=== PATIENT | female | born 1965 | race Caucasian/White ===

== ENCOUNTER 2019-06-18 12:25 | Emergency (ER) | payer SELFPAY ==
--- NOTE | ~2019-06-18 | XR_ITS ---
EXAMINATION: XR hand LT min 3V EXAM DATE: 06/18/2019 13:04 INDICATION: Initial encounter following injury, with pain of the left third finger. TECHNIQUE: Left hand frontal, lateral and oblique projections obtained and reviewed. There is no estefani or study for comparison. FINDINGS: There is dislocated left third middle phalanx at the proximal interphalangeal joint. There is possible acute left middle phalangeal neck closed posttraumatic fracture, recommend repeating exam following reduction. There is soft tissue swelling. IMPRESSION: 1. Left third middle phalangeal dislocation. 2. Possible third middle phalangeal neck fracture. Reviewed, dictated and finalized at location B. CAL UNDERWRITER
--- NOTE | ~2019-06-18 | XR_ITS ---
EXAMINATION: XR finger 3rd LT min 2V INDICATION: Left third finger post reduction TECHNIQUE: Two views of the left third finger are obtained. COMPARISON: 1300 hours FINDINGS: There is partial reduction of the previously described third middle phalanx dislocation. No definite fracture is identified. There is soft tissue swelling of the third finger. IMPRESSION: 1. Partial reduction of the previously described third middle phalanx dislocation. Reviewed, dictated and finalized at location A. NE MARKETING COORDINATOR IMPRESSION: 1. Partial reduction of the previously described third middle phalanx dislocati on.
[2019-06-18 12:43] VITALS: BP 152/109; PULSE 92; RESP 16; TEMP 36.2; O2SAT 97
[2019-06-18 13:00] LABS: Basophils Absolute Auto 0.2 K/mm3 (0.0-0.1); Basophils Percent Auto 2.1 % (0.2-1.2); Eosinophils Absolute Auto 0.1 K/mm3 (0-0.3); Eosinophils Percent Auto 1.5 % (0-4.4); Hematocrit 32.9 % (37.0-47.0); Hemoglobin 11.2 g/dL (12.0-15.0); Immature Granulocyte Absolute 0.09 K/mm3 (0.00-0.031); Immature Granulocyte Percent A 1.1 % (0-0.5); Lymphocytes Absolute Auto 2.54 K/mm3 (0.9-3.2); Lymphocytes Percent Auto 31.7 % (18.3-44.2); Mean Corpuscular Hemoglobin 34.6 pg (26-34); Mean Corpuscular Volume 101.5 fl (80-100); Mean Platelet Volume 9.2 fl (7.4-10.4); Monocytes Absolute Auto 0.6 K/mm3 (0.1-0.6); Monocytes Percent Auto 7.2 % (2.6-8.5); Neutrophils Absolute Auto 4.5 K/mm3 (1.3-6.7); Neutrophils Percent Auto 56.4 % (45.5-73.1); Platelet Count Result 435 k/mm3 (150-375); Red Blood Count 3.24 M/mm3 (4.2-5.4); Red Cell Distribution Width 16.7 % (11.5-14.5)
[2019-06-18 13:11] LABS: Blood Urea Nitrogen 7 mg/dL (7-17); CRP < 0.5 mg/dL (<1.0); Calcium 8.5 mg/dL (8.4-10.2); Carbon Dioxide 28 mmol/L (22-30); Chloride 96 mmol/L (98-107); Estimated CRCL calculation 79 ml/min; Estimated Glomerular Filt Rate > 60; Glucose 100 mg/dL (65-105); Potassium 2.9 mmol/L (3.4-5.0); Sodium 142 mmol/L (137-145)
[2019-06-18] MEDS: Please add drug allergy info to patient profile. 1 EACH XX (13:14)
[2019-06-18] MEDS: SODIUM CHLORIDE 0.9% IV 1,000 ML 999 ML IV CONT (13:15)
[2019-06-18 13:39] LABS: Magnesium 1.8 mg/dL (1.6-2.3)
[2019-06-18] MEDS: ceFAZolin 2 GM/D5W 50 ML 2 GM/50 ML BAG IVPB (13:54)
[2019-06-18] MEDS: POTASSIUM CHLORIDE 20 MEQ TABLET 40 MEQ PO (14:37)
[2019-06-18 15:00] LABS: Potassium 2.8 mmol/L (3.4-5.0)
[2019-06-18] MEDS: MAGNESIUM SULF 2 GM/WATER 50ML 2 GM/50 ML BAG IVPB (15:19)
[2019-06-18 15:20] VITALS: BP 174/81; PULSE 86; RESP 26; O2SAT 96
--- NOTE | 2019-06-18 15:48 | PC.NURSE ---
SHITAL Tinoco at bedside attempting to reduce finger
--- NOTE | 2019-06-18 16:42 | ED.GENADULT ---
HPI - General Adult General Chief complaint: Extremity Injury, Upper Stated complaint: left hand injury Time Seen by Provider: 06/18/19 12:28 Source: patient and family Mode of arrival: ambulatory Limitations: no limitations History of Present Illness HPI narrative: Patient is a 54-year-old female who presents to emergency department for evaluation of pain to the left leg middle phalanx that began 2 weeks ago after having the finger pulled on while working with her horse had dislocation deformity waited a week and went to outside hospital but left prior to being seen. Patient presents today noting continued difficulty with moving the finger with moderate aching pain patient denies other injuries or complaints and on arrival is in no distress and has not been seen for this complaint Related Data Allergies Allergy/AdvReac Type Severity Reaction Status Date / Time No Known Allergies Allergy Verified 06/18/19 12:58 Review of Systems Review of Systems: Narrative: CONSTITUTIONAL: Denies fever, chills, or sweats. SKIN: Positive for swelling MUSCULOSKELETAL: Positive for decreased range of motion and strength NEUROLOGIC: Denies numbness PMFSH Social History Social History Smoking status: Current every day smoker Gender identity (if verbalized by the patient): Female Exam Narrative: Exam Narrative: GENERAL: Well-appearing, well-nourished, and in no acute distress. HEAD: Normocephalic, atraumatic. EYES: PERRLA and EOMI. ENT: Nares clear, no rhinorrhea or epistaxis. Mucous membranes moist. CHEST: Clear to auscultation. No respiratory distress. No wheezes rales or rhonchi HEART: Regular rate and rhythm. No murmur heard. Normal peripheral pulses. EXTREMITIES: Patient with tenderness of the PIP joint of the left middle digit with finger held and flexion with inability to extend SKIN: Warm, dry, no rash. Patient with nail avulsed of the distal phalanx with some pink viable tissue underneath without any cellulitic changes NEURO: No focal deficits. Alert and oriented x3. Neurovascularly intact. Capillary refill less than 2 seconds PSYCH: Normal mood and affect. Course Course Emergency Course: Patient aware of case findings treatment plan and diagnosis agreeing to follow-up as directed or to return if symptoms worsen or concern Consultations Consultation #1: Discussed case with hand surgeon who will follow the patient in clinic Date: 06/18/19 Vital Signs Vital signs: Vital Signs Temperature 97.2 F L 06/18/19 12:43 Pulse Rate 92 06/18/19 12:43 Respiratory Rate 16 06/18/19 12:43 Blood Pressure 152/109 H 06/18/19 12:43 Pulse Oximetry 97 06/18/19 12:43 Temperature 97.2 F L 06/18/19 12:43 Pulse Rate 86 06/18/19 15:20 Respiratory Rate 26 H 06/18/19 15:20 Blood Pressure 174/81 H 06/18/19 15:20 Pulse Oximetry 96 06/18/19 15:20 Procedures Other Procedure Procedure 1: Other Procedure: Patient's finger was reduced partially splinted in a metal finger splint neurovascularly intact pre-and post procedure which was manually done after a digital block Medical Decision Making MDM Narrative Medical decision making narrative: Patients injury or pain is consistent with musculoskeletal etiology. No signs of neurological or vascular compromise on exam. Compartments and tisues are soft without signs of compartment syndrome. Pain is felt appropriate for further evaluation on an outpatient basis. Patient referred to plastic surgery who will see the patient in clinic patient is aware of this and agrees to follow-up in clinic as planned and was provided with reasons to return Vital Signs Vital Signs: Vital Signs Temperature 97.2 F L 06/18/19 12:43 Pulse Rate 92 06/18/19 12:43 Respiratory Rate 16 06/18/19 12:43 Blood Pressure 152/109 H 06/18/19 12:43 Pulse Oximetry 97 06/18/19 12:43 Temperature 97.2 F L 06/18/19 12:43 Pulse Rate 86
--- NOTE | 2019-06-24 07:40 | PC.NURSE ---
LATE ENTRY This note is being entered to document information to the patient's record. The following information was omitted on [06/24/19], by [Юлия Jimenez] NS stopped at 1415 on 06/18/19 Mag stopped at 1550 on 06/18/19.
== END 2019-06-18 17:11 | disposition home or self-care (01) ==
PROVIDERS: Emergency Medicine Emergency Medical Services; Emergency Provider Emergency Medicine
DX: S63.283A Dislocation of proximal interphalangeal joint of left middle finger, initial encounter (principal); S56.414A Strain of extensor muscle, fascia and tendon of left middle finger at forearm level, initial encounter; F17.200 Nicotine dependence, unspecified, uncomplicated; R93.6 Abnormal findings on diagnostic imaging of limbs; X50.9XXA Other and unspecified overexertion or strenuous movements or postures, initial encounter
CPT/HCPCS: 26770; 36415; 73130; 73140; 80048; 83735; 84132; 85025; 86140; 87070; 87147; 87186; 87205; 96365; 96367; 96375; 99285; A9270; J0131; J0690; J3475; J7030

== ENCOUNTER 2019-06-21 10:52 | Outpatient (CLI) | payer MEDICAID, SELFPAY ==
--- NOTE | ~2019-06-21 | XR_ITS ---
EXAMINATION: XR finger 3rd LT min 2V INDICATION: Left third finger dislocation TECHNIQUE: Four views of the left third finger are obtained. COMPARISON: 06/18/2018 FINDINGS: There is persistent palmar subluxation of the third middle phalanx with respect to the prox imal phalanx. No fracture is identified. Soft tissue swelling surrounds the dislocation. No additiona l acute osseous findings are evident. IMPRESSION: 1. Persistent palmar subluxation of the third middle phalanx with respect to the proximal phalanx. Reviewed, dictated and finalized at location A. [place] COVERAGE MERCHANDISER LEAD IMPRESSION: 1. Persistent palmar subluxation of the third middle phalanx with respect to th e proximal phalanx.
== END 2019-06-21 10:53 | disposition home or self-care (01) ==
PROVIDERS: Visit Provider Plastic Surgery
DX: S63.283A Dislocation of proximal interphalangeal joint of left middle finger, initial encounter (principal)
CPT/HCPCS: 73140

== ENCOUNTER 2019-06-27 01:25 | Day surgery (SDC) | payer MEDICAID, SELFPAY ==
[2019-06-24 08:52] VITALS: BMI 23.1
--- NOTE | 2019-06-26 18:10 | HP_ITS ---
DATE OF SERVICE: 06/27/2019 PREOPERATIVE DIAGNOSIS: Volar dislocation of the left middle finger at the PIP joint. HISTORY: The patient is 54 and she is right-hand dominant lady, who sustained an injury to the left middle finger around May 31. This occurred when she was using a piece of nylon twine as a bridle and rein for a horse, the horse bucked and the reins wrapped around her finger apparently pulled when she sustained a volar dislocation of the PIP joint, the ring finger may have been involved to a lesser degree, but her middle finger ended up with a 90-degree flexion deformity at the PIP joint. These were closed injuries, although she has a soft tissue laceration at the tip of the middle finger. She tried to take care of this herself for a few days. She is visiting in this area for various reasons and lives in [place] now. She presented to the emergency room on 06/18/2019, where x-rays were taken revealing the volar dislocation. An attempt was made by the ER staff to do a reduction and they were not able to do to accomplish that. She was sent to me when I saw her on June 21, and by that time, she was very concerned of this digit, which was causing her a fair amount of discomfort and a lot of anxiety. We were able to make an attempt of reduction of this under local anesthetic in the office. It appears from the x-rays that we were able to correct the basic anatomical issue, but we were not able to maintain full reduction as the collateral ligaments allowed her to fall into subluxation. She is being brought to surgery to do an open reduction and confirm that there is nothing interposed in the joint space and the reduction is complete, and she will probably need to undergo repairs of collateral ligaments, perhaps a central slip and she will need a transverse C-wire for stabilization across the PIP joint I believe from least for a couple of weeks. She is willing to undergo this. She realizes there is not much else that can be accomplished. I have tried to explain to her that this joint will never be the same and she will not have full function from that, but it should not be fpc. ALLERGIES: SHE HAS NO KNOWN ALLERGIES TO MEDICATIONS. PAST SURGICAL HISTORY: She has had no prior surgery. She does not have any client services specialist who follows her. CURRENT MEDICINES: Fluoxetine, Aleve, and hydrocodone 5/325. FAMILY HISTORY: Noncontributory. SOCIAL HISTORY: She lives in [place], [place]. She has a close friend here in this area. She plans to run a horse pretty soon in this area and plans to stay for a bit. PHYSICAL EXAMINATION: GENERAL: She is alert and kind of an anxious person, seemingly in distress each time I have seen her. VITAL SIGNS: She is 5 feet 4 inches and weighs 135 pounds, provides excellent history. HEENT: Unremarkable. CHEST: Clear to auscultation. HEART: Regular rate and rhythm by palpation. ABDOMEN: Soft, nontender. EXTREMITIES: Normal with the exception of the left middle and ring fingers. She has this soft tissue avulsion injury at the very tip of the middle finger, nail is partially involved. She has a very lax PIP joint having sustained a volar dislocation that may or may not be in a reduced condition at this time and she has some swelling and tenderness around the PIP joint of the ring finger. PLAN: Possible open reduction and internal C-wire fixation, possible repair of collateral ligaments or central slip as indicated under general anesthesia. D I MT: Yuly SANABRIA
[2019-06-27] VITALS (9 sets, daily range): BP systolic 106–124; BP diastolic 60–79; PULSE 69–95; RESP 11–20; TEMP 35.8–36.8; O2SAT 94–100
--- NOTE | ~2019-06-27 | XR_ITS ---
EXAMINATION: XR surgery orthopedic DATE: 06/27/2019 10:54 INDICATION: Closed, possible the left third finger fracture. Proximal interphalangeal joint subluxati on TECHNIQUE: 3 fluoroscopic spot images of the third digit were obtained during procedure performed by Dr. Dunham. Radiologist was not present for the imaging or procedure. The amount of fluoroscopy time u sed during this procedure was 0.4 minutes. COMPARISON: None. FINDINGS: Initial lateral spot image demonstrates persistent palmar subluxation at the third proximal interphal angeal joint. Subsequent images demonstrate reduction with percutaneous pin fixation across the joint space which is been reduced to anatomic alignment with mild residual widening of the joint space. No fractures identified. 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 Lik gianni surgical wound on the final images along the dorsal and radial sided soft tissues about the proxi mal interphalangeal joint. IMPRESSION: 1. Successful reduction of the prior palmar subluxation at the third proximal interphalangeal joint w ith percutaneous pin fixation. Reviewed, dictated and finalized at location A. WRESTLER IMPRESSION: 1. Successful reduction of the prior palmar subluxation at the third proximal i nterphalangeal joint with percutaneous pin fixation.
--- NOTE | 2019-06-27 07:18 | WPDHPUPDATE1 ---
History and Physical Update Update Date/Time: 06/27/19 07:18 History and Physical has been reviewed, including an updated exam of the patient. There are NO changes in the patient's condition. Risks, benefits, and alternatives have been discussed and questions answered. Patient agrees to proceed with procedure.
--- NOTE | 2019-06-27 08:58 | WPDANESEPPF ---
Anes - Initial Pre Proc Eval Procedure: Operation Date: 06/27/19 10:00 Proposed Procedures p Closed, Possible Open Reduction and Pin Fixation Left Middle Finger Proximal Interphalangeal Joint Dislocation, Possible Repair Of Collateral Ligaments - Elvis Dunham MD Date/Time: 06/27/19 08:58 Surgeon: Elvis Dunham MD Pre Op Diagnosis: dislocation left middle finger pip Patient Data Age: 54 Gender: F Height: 1.63 m Weight: 65 kg Allergies Allergy/AdvReac Type Severity Reaction Status Date / Time No Known Allergies Allergy Verified 06/27/19 08:50 Home Medications Medication Instructions Recorded Confirmed Type hydrocodone-acetaminophen 1 tablet PO Q6H PRN #20 tablet 06/18/19 06/27/19 Rx albuterol sulfate 1 - 2 puff INHALATION TID PRN 06/24/19 06/27/19 History fluoxetine 30 mg PO DAILY 06/24/19 06/27/19 History naproxen sodium [Aleve] 440 mg PO Q8H PRN 06/24/19 06/27/19 History Patient hx anesthesia problems: none Family hx anesthesia problems: none [facility] Past Medical History Medical History (Updated 06/27/19 @ 08:59 by Isaac Velásquez MD) Anxiety Arthritis Depression Gastroesophageal reflux disease HTN (hypertension) Social History Social History (Updated 06/18/19 @ 16:44 by Eric Peng PA-C) Smoking status: Current every day smoker Gender identity (if verbalized by the patient): Female Anes - Eval Final PreProcedure Day of Procedure 06/27/19 08:58 Patient weight: normal Heart: regular rate and rhythm Lungs: clear to auscultation and normal air movement Airway: Mallampati scale class II Neurological: alert and oriented Last oral intake: >/= 8 hours ASA classification: II Emergent: no Anesthetic plan: proceed Anesthesia type and monitoring: general GIVS and LMA Informed Consent: The patient's anesthetic plan and its attendant risks and benefits were discussed with the patient/family/POA. Questions were solicited and answers provided to the satisfaction of the patient/family/POA.
[2019-06-27] MEDS: LACTATED RINGERS 1,000 ML 30 ML IV CONT ×2 (09:00→11:02)
[2019-06-27] MEDS: MIDAZOLAM HCL 2 MG/2 ML VIAL 1 MG IV PUSH (09:10)
[2019-06-27] MEDS: LIDO 1%/EPINEPHRINE 1:100,000 20 ML VIAL 5 ML INFILTRATE (10:15)
--- NOTE | 2019-06-27 10:57 | PM.OP ---
Procedure Note - Brief Procedure Note - Brief Date of procedure: 06/27/19 Pre-op diagnosis: dislocation left middle finger pip Volar unstable dislocation of left middle PIP joint. Post-op diagnosis: same Procedure performed: Open reduction of volar dislocation of PIPjoint of left middle finger with repair on radial collateral ligament. Anesthesia: GETA Surgeon: Elvis Dunham MD Nurse Substance Abuse: Sera ISAACS student Estimated blood loss (mL): 5 Tourniquet time (min): 0 Drains: No Packing: No Pathology: none sent Complications: No immediate complications Condition: stable Disposition: PACU
--- NOTE | 2019-06-27 11:07 | P.OP_ITS ---
Procedure Note - Detailed Date of procedure: 06/27/19 Pre-op diagnosis: dislocation left middle finger pip Irreducible volar dislocation of left middle finger PIP joint. Procedure performed: Open reduction and internal stabilization of the proximal interphalangeal joint of the left middle finger and repair of the radial collateral ligament Description of procedure: The site was marked on the patient in the holding area. She was taken to the operating room and placed supine operating table. A time-out was held and confirmed. She was given general endotracheal anesthesia as the extremity was prepped and draped in the usual fashion. The site was carefully examined it was marked for a dorsal midline incision is locally infiltrated with 1% lidocaine with epinephrine. C-arm images were made to confirm the open reduced status of this joint. The tourniquet was utilized. The dorsal midline incision was made the extensor tendon was split down the middle it appeared that the dislocation occurred through the interspace between the radial lateral band and the central slip. The central slip did not appear to have been fully avulsed. The ulnar collateral ligament was stable the radial collateral ligament was completely torn. We were able to open the joint and visualize the distal stump of the radial collateral ligament interposed into the joint space. This was relatively easily extracted and the joint fully reduced. C-arm images were done to confirm the reduction. The reduction was manually maintained and the radial collateral ligament was repaired to the fovea on the radial head of the middle phalanx. The distal erick mp of the proper radial collateral ligament was laid in anatomic position.. The central slip and extensor tendon were repaired with 4-0 Prolene sutures. A 0.045 C wire was driven diagonally from the ulnar neck of the proximal phalanx across the joint to the radial metaphysis of the proximal phalanx. The position of that wire and the maintained reduction were captured on C-arm images. The skin was closed with a running 4-0 Prolene. Bandage was applied to the tip of the finger where she has a soft tissue injury and to the operated site. A Coban wrap was applied no additional splinting was provided. She received 2 g of Ancef preop. No additional local anesthetic was utilized. Should be discharged with hydrocodone 5/325 12. She has instructions in wound care and follow-up. Surgeon: Elvis Dunham MD
--- NOTE | 2019-06-27 11:41 | SUR.PHASEI ---
1138; PT AWAKE AND ALERT. TALKATIVE. DENIES PAIN. READY TO SEE FAMILY.
--- NOTE | 2019-07-03 18:57 | PM.OP ---
Procedure Note - Brief Procedure Note - Brief Date of procedure: 07/03/19 Pre-op diagnosis: dislocation left middle finger pip Post Surgeon: Elvis Dunham MD
== END 2019-06-27 13:25 | disposition home or self-care (01) ==
PROVIDERS: Visit Provider Plastic Surgery
PROC: (CPT 26540; principal; 2019-06-27 10:00)
DX: S63.283A Dislocation of proximal interphalangeal joint of left middle finger, initial encounter (principal); S63.633A Sprain of interphalangeal joint of left middle finger, initial encounter; X50.0XXA Overexertion from strenuous movement or load, initial encounter; I10 Essential (primary) hypertension; K21.9 Gastro-esophageal reflux disease without esophagitis; M19.90 Unspecified osteoarthritis, unspecified site; F41.8 Other specified anxiety disorders; F17.210 Nicotine dependence, cigarettes, uncomplicated
CPT/HCPCS: 26540; 26785; A9270; C1713; J0131; J0690; J1100; J2250; J2370; J2405; J2704; J3010; J7120

== ENCOUNTER 2019-07-03 19:23 | Inpatient (IN) | payer MEDICAID, BC, SELFPAY ==
[2019-07-03] VITALS (12 sets, daily range): BP systolic 99–172; BP diastolic 62–105; PULSE 70–92; RESP 7–20; TEMP 36.3–37; O2SAT 92–100; BMI 24.5
--- NOTE | ~2019-07-03 | XR_ITS ---
XR surgery orthopedic 07/05/2019 15:29 Indication: Post procedure wound Procedure: 2 views left third finger Comparison: 06/27/2019 Findings: Portable reduction of the third digit at the PIP joint with percutaneous pin fixation. Inte rval development of a large amount of soft tissue swelling with soft tissue gas, suspicious for cellu litis. No evidence for underlying osteomyelitis. Impression: 1: Interval development of soft tissue swelling with gas adjacent to the left third PIP joint, suspic ious for cellulitis. No evidence for osteomyelitis. Reviewed, dictated and finalized at location A. Impression: 1: Interval development of soft tissue swelling with gas adjacent to the left t hird PIP joint, suspicious for cellulitis. No evidence for osteomyelitis.
--- NOTE | 2019-07-03 16:42 | WPDANESEPP ---
Anes - Eval Pre Procedure Procedure: Operation Date: 07/03/19 17:30 Proposed Procedures p Incision And Drainage Left Middle Finger - Elvis Dunham MD Date/Time: 07/03/19 16:42 Pre Op Diagnosis: Post Procedure Wound Left Middle Finger Patient Data Age: 54 Gender: F Height: Weight: Allergies Allergy/AdvReac Type Severity Reaction Status Date / Time No Known Allergies Allergy Verified 06/27/19 08:50 Home Medications Medication Instructions Recorded Confirmed Type hydrocodone-acetaminophen 1 tablet PO Q6H PRN #20 tablet 06/18/19 06/27/19 Rx albuterol sulfate 1 - 2 puff INHALATION TID PRN 06/24/19 06/27/19 History fluoxetine 30 mg PO DAILY 06/24/19 06/27/19 History naproxen sodium [Aleve] 440 mg PO Q8H PRN 06/24/19 06/27/19 History hydrocodone-acetaminophen 1 tablet PO 4-6XD PRN #12 tablet 06/27/19 Rx Patient hx anesthesia problems: none Family hx anesthesia problems: none PMFSH Past Medical History Medical History Anxiety Arthritis Depression Gastroesophageal reflux disease HTN (hypertension) Social History Social History Smoking status: Current every day smoker Gender identity (if verbalized by the patient): Female Exam Day of Procedure 07/03/19 16:42
[2019-07-03] MEDS: LACTATED RINGERS 1,000 ML 30 ML IV CONT ×2 (16:55→19:26)
[2019-07-03] MEDS: MIDAZOLAM HCL 2 MG/2 ML VIAL IV PUSH (17:05)
--- NOTE | 2019-07-03 17:14 | WPDANESEFPP ---
Anes - Eval Final PreProcedure Day of Procedure 07/03/19 17:14 Patient weight: normal Heart: regular rate and rhythm Lungs: clear to auscultation and normal air movement Airway: Mallampati scale class II Neurological: alert and oriented Last oral intake: >/= 8 hours ASA classification: II Emergent: no Anesthetic plan: proceed Anesthesia type and monitoring: general GIVS and LMA Informed Consent: The patient's anesthetic plan and its attendant risks and benefits were discussed with the patient/family/POA. Questions were solicited and answers provided to the satisfaction of the patient/family/POA.
--- NOTE | 2019-07-03 18:44 | SUR.OPER ---
Dr. Mae wanted to use 0.5% bupivacaine plain instead of lidocaine 1% with epi. Lidocaine was wasted
--- NOTE | 2019-07-03 19:02 | PM.OP ---
Procedure Note - Brief Procedure Note - Brief Date of procedure: 07/03/19 Pre-op diagnosis: Post Procedure Wound Left Middle Finger Post-op diagnosis: same Procedure performed: Sharp debridement of gangrenous ligamentous and subcutaneous tissue of left middle finger. Anesthesia: GETA Surgeon: Elvis Dunham MD Estimated blood loss (mL): 20 Drains: No Packing: Yes Pathology: yes Complications: No immediate complications Condition: stable Disposition: PACU
--- NOTE | 2019-07-03 19:05 | PM.PROC ---
Procedure Note - Detailed Date of procedure: 07/03/19 Pre-op diagnosis: Post Procedure Wound Left Middle Finger Postprocedure wound infection left middle finger Procedure performed: Sharp excisional debridement of gangrenous subcutaneous and ligamentous tissue Description of procedure: The patient had been given Versed in the holding area. I met her there and marked the appropriate upper extremity indicating the middle finger as our target. She was taken to the operating room and placed supine on the operating table. A time-out was held in confirmed. The extremity was prepped and draped in usual fashion as she was administered general endotracheal anesthesia. The tourniquet was inflated to 250 mmHg. The dorsal midline incision was completely opened removing all suture material pus was identified in the area of the extensor tendon and could be compressed from the palmar aspect of the digit through to the dorsum as well. The previously placed c wire was identified. The joint capsule was open and the extensor tendon lay split 2 both sides. The subcutaneous pocket to both sides was explored. A stab wound was made to the palmar proximal phalanx and to the radial side of the digit to allow for drainage. A curette was used to debride granulation tissue. The nonviable tissue was trimmed out with scissors from the extensor tendon the joint capsule and the subcutaneous tissue. This wound was then irrigated with 2 L of bacitracin saline. Quarter-inch iodoform gauze was placed in all crevices. No sutures were placed. The tourniquet was released and the finger was held under light compression until all bleeding stopped. A bulky bandage was applied. Prior to placing the dressing 10 mL of 0.5% Marcaine plain were injected as a dorsal and palmar digital block. A culture was sent for aerobes and anaerobes. Surgeon: Elvis Dunham MD
--- NOTE | 2019-07-03 19:28 | SUR.PHASEI ---
192 dr lindsay here and reiinforced drsg to left fingers.
[2019-07-03 21:09] LABS: Estimated Glomerular Filt Rate > 60
--- NOTE | 2019-07-03 21:43 | ADMGEN ---
This patient, Emma Kimball, was admitted to 3 [facility] Surg Room 309-01. Patient/family oriented to hospital policies and general routines including ID bracelet, bed and alarms, visiting hours, pain management, procedures, bathroom and other care routines, personal items, smoking policy, room service/diet, and visiting hours. Valuables list has been completed. Information on how to activate the Rapid Response Team has been discussed. Patient/Family are encouraged to report perceived risks to care and to ask questions if they do not understand what they are told or what they should do.
[2019-07-03] MEDS: ALPRAZOLAM 0.5 MG TABLET PO (22:01)
[2019-07-03] MEDS: carisoprodoL 350 MG TABLET PO (23:02)
--- NOTE | 2019-07-03 23:30 | HP_ITS ---
DATE OF SERVICE: DIAGNOSIS: Postoperative infection of the left middle finger. SUMMARY: This patient is 54. 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 She ended up with me after several weeks, and we were able to schedule her for open reduction of this, otherwise irreducible volar dislocation of the PIP joint. There was a great deal of damage inside. We corrected what we could, placed a 0.045 inch C-wire diagonally across the PIP joint for stability and she was discharged home. She presented 5 days later with infection in this finger, it was red, swollen, and there are pustules along the suture line. She has had 2 g Ancef preop for a finger that had not appeared to be infected. She very quickly became infected postop. She was admitted today from my office for surgery to debride this. PAST MEDICAL HISTORY: She takes very little medication. She uses albuterol, fluoxetine, some ibuprofen. She has problems with anxiety and depression, currently was not taking medication for those. She also is listed having gastroesophageal reflux, hypertension. No surgical history. She is a current everyday smoker and was reported upon her arrival to the emergency room at [facility] to have been intoxicated with alcohol. PHYSICAL EXAMINATION: GENERAL: She is sometimes very anxious lady, other times not. Appears well nourished. HEENT: Unremarkable. CHEST: Clear to auscultation. HEART: Regular rate and rhythm by palpation. ABDOMEN: Soft, nontender. EXTREMITIES: Shows the very red sausage shaped swollen finger that does not flex or extend at this time at the PIP joint due to the pin. This wound was already opened in my office. All sutures removed and the pus had been drained. ASSESSMENT: Infected surgical wound of the left middle finger. PLAN: I and D, and debride gangrenous subcutaneous or ligamentous or tendinous tissue as indicated in the operating room under general anesthesia. She will be admitted postop. We will send cultures. She will be given IV vancomycin and will be admitted postop with cefazolin and vancomycin. D I MT: Yuly
[2019-07-04 02:00] VITALS: BP 122/83; PULSE 71; RESP 16; TEMP 36.6; O2SAT 95
[2019-07-04] MEDS: HYDROMORPHONE HCL 1 MG/ML INJ IV PUSH ×3 (04:02→19:36)
[2019-07-04 06:00] VITALS: BP 142/83; PULSE 83; RESP 20; TEMP 36.6; O2SAT 100
[2019-07-04] MEDS: ALPRAZOLAM 0.5 MG TABLET PO ×3 (06:05→21:09)
[2019-07-04] MEDS: carisoprodoL 350 MG TABLET PO ×4 (06:05→23:26)
[2019-07-04 06:42] LABS: Hematocrit 28.2 % (37.0-47.0); Hemoglobin 9.2 g/dL (12.0-15.0); Mean Corpuscular HGB Conc 32.6 g/dl (32-36); Mean Corpuscular Hemoglobin 34.3 pg (26-34); Mean Corpuscular Volume 105.2 fl (80-100); Mean Platelet Volume 9.8 fl (7.4-10.4); Platelet Count Result 308 k/mm3 (150-375); Red Blood Count 2.68 M/mm3 (4.2-5.4); Red Cell Distribution Width 15.2 % (11.5-14.5); White Blood Count 10.4 K/mm3 (4.5-10.0)
[2019-07-04 06:59] LABS: Blood Urea Nitrogen 5 mg/dL (7-17); Calcium 8.7 mg/dL (8.4-10.2); Carbon Dioxide 27 mmol/L (22-30); Chloride 101 mmol/L (98-107); Estimated CRCL calculation 113 ml/min; Estimated Glomerular Filt Rate > 60; Glucose 128 mg/dL (65-105); Sodium 135 mmol/L (137-145)
--- NOTE | 2019-07-04 10:38 | WPDANESPN ---
Anes - Prog Note Post-Op Date/Time: 07/04/19 10:38 Cardiovascular status: normal Respiratory status: normal Airway patency: baseline Mental status: baseline Post-Op hydration status: normal Vital Signs: Last Vital Signs Temp 36.6 C 07/04/19 06:00 Pulse 83 07/04/19 06:00 Resp 20 07/04/19 06:00 BP 142/83 H 07/04/19 06:00 Pulse Ox 100 07/04/19 06:00 I/O: Intake & Output 07/03/19 07/04/19 07/04/19 23:59 07:59 15:59 Intake Total 650 170 Output Total 600 Balance 650 -430 Laboratory Tests 07/04/19 05:54 07/04/19 05:54 07/03/19 07/04/19 07/04/19 20:50 05:54 05:54 WBC 10.4 H RBC 2.68 L Hgb 9.2 L Hct 28.2 L MCV 105.2 H MCH 34.3 H MCHC 32.6 RDW 15.2 H Plt Count 308 MPV 9.8 Sodium 135 L Potassium 3.0 L Chloride 101 Carbon Dioxide 27 BUN 5 L Creatinine 0.40 L 0.40 L Estim Creat Clear Calc Not Reportable 113 Estimated GFR > 60 > 60 Glucose 128 H Calcium 8.7 Post-procedural complaints: none Patient Feedback: Patient satisfied with anesthetic care.
[2019-07-04 14:00] VITALS: BP 137/87; PULSE 86; RESP 18; TEMP 36.3; O2SAT 100
--- NOTE | 2019-07-04 19:42 | WPDPN ---
Progress Note: A&P Additional Plan I will need to take her back to the OR tomorrow for a 2nd washout and debredment . Will make NPO but haven't scheduled yet. Exam Narrative: Exam Narrative: Hand and finger redressed. No purulence. Little erythema. Britney in place. Objective Data Vital Signs Vital Signs: Vital Signs - 24 hr 07/03/19 19:45 07/03/19 20:00 07/03/19 20:15 Temperature 36.6 C Pulse Rate 85 75 76 Respiratory Rate 13 10 L 11 L Blood Pressure 166/105 H 162/97 H 172/92 H Pulse Oximetry 96 95 93 07/03/19 20:30 07/03/19 20:45 07/03/19 21:00 Temperature 36.8 C 37.0 C Pulse Rate 74 86 76 Respiratory Rate 16 20 16 Blood Pressure 168/96 H 158/104 H 157/101 H Pulse Oximetry 96 95 96 07/03/19 21:30 07/03/19 22:30 07/04/19 02:00 Temperature 36.8 C 36.8 C 36.6 C Pulse Rate 80 76 71 Respiratory Rate 16 16 16 Blood Pressure 151/102 H 127/80 122/83 Pulse Oximetry 98 92 95 07/04/19 06:00 07/04/19 14:00 Temperature 36.6 C 36.3 C L Pulse Rate 83 86 Respiratory Rate 20 18 Blood Pressure 142/83 H 137/87 Pulse Oximetry 100 100 Intake/Output Intake/Output: Intake & Output 07/01/19 07/02/19 07/03/19 07/04/19 23:59 23:59 23:59 23:59 Intake Total 650 1340 Output Total 1800 Balance 650 -460 Meds/Results Medications: Active Medications Generic Name Dose Route Start Last Admin Trade Name Freq PRN Reason Stop Dose Admin Hydrocodone Bitart/Acetaminophen 1 tab 07/03/19 19:34 07/04/19 19:24 [place] 5-325 Mg PO 1 tab Q4H PRN Administration Pain Rated 4-6 Albuterol 1 - 2 puff 07/03/19 19:45 Proventil Hfa INHALATION TID PRN Shortness Of Breath Alprazolam 0.5 mg 07/03/19 20:04 07/04/19 14:07 Xanax PO 0.5 mg TID PRN Administration Anxiety Carisoprodol 350 mg 07/04/19 00:00 07/04/19 19:28 Soma PO 350 mg Q6HR EDWARD Administration Diphenhydramine HCl 25 mg 07/03/19 19:34 Benadryl Inj IV PUSH Q6H PRN Itching Hydromorphone HCl 1 mg 07/03/19 19:23 07/04/19 14:04 Dilaudid Inj IV PUSH 1 mg Q2H PRN Administration Pain Rated 7-10 Cefazolin Sodium 1 gm in 50 mls @ 100 mls/hr 07/03/19 22:00 07/04/19 15:54 Ancef 1 Gm/D5w 50 Ml Pm IVPB 100 mls/hr Q8HR EDWARD Administration Vancomycin HCl 1,000 mg in 250 mls @ 250 mls/hr 07/04/19 06:00 07/04/19 19:23 Vancomycin 1,000 Mg/D5w 250 Ml IVPB 250 mls/hr Q12H EDWARD Administration Naloxone HCl 0.1 mg 07/03/19 19:34 Narcan IV PUSH Q2M PRN Opiate Reversal Ondansetron HCl 4 mg 07/03/19 19:23 Zofran Inj IV PUSH Q6H PRN Nausea Labs Labs: Laboratory Results - last 24 hr 07/03/19 07/04/19 07/04/19 20:50 05:54 05:54 WBC 10.4 H RBC 2.68 L Hgb 9.2 L Hct 28.2 L MCV 105.2 H MCH 34.3 H MCHC 32.6 RDW 15.2 H Plt Count 308 MPV 9.8 Sodium 135 L Potassium 3.0 L Chloride 101 Carbon Dioxide 27 BUN 5 L Creatinine 0.40 L 0.40 L Estim Creat Clear Calc Not Reportable 113 Estimated GFR > 60 > 60 Glucose 128 H Calcium 8.7
[2019-07-04 22:00] VITALS: BP 98/60; PULSE 84; RESP 18; TEMP 37; O2SAT 97
[2019-07-05] VITALS (14 sets, daily range): BP systolic 121–168; BP diastolic 65–111; PULSE 73–102; RESP 12–20; TEMP 36.2–36.8; O2SAT 95–100
[2019-07-05] MEDS: HYDROMORPHONE HCL 1 MG/ML INJ IV PUSH ×6 (00:34→19:39)
[2019-07-05] MEDS: carisoprodoL 350 MG TABLET PO ×2 (05:36→18:27)
[2019-07-05 06:31] LABS: Vancomycin Trough 9.2 ug/mL (10.0-20.0)
--- NOTE | 2019-07-05 09:40 | WPDANESEPP ---
Anes - Eval Pre Procedure Procedure: Operation Date: 07/03/19 17:30 Proposed Procedures p Incision And Drainage Left Middle Finger - Elvis Dunham MD Operation Date: 07/05/19 14:00 Proposed Procedures p SECOND WASHOUT AND DEBRIDEMENT LEFT MIDDLE FINGER - Elvis Dunham MD Date/Time: 07/05/19 09:40 Pre Op Diagnosis: Post Procedure Wound Left Middle Finger Patient Data Age: 54 Gender: F Height: 1.63 m Weight: 64.9 kg Last Vital Signs Temp 36.6 C 07/05/19 06:00 Pulse 81 07/05/19 07:56 Resp 18 07/05/19 07:56 BP 125/77 07/05/19 06:00 Pulse Ox 99 07/05/19 07:56 Allergies Allergy/AdvReac Type Severity Reaction Status Date / Time No Known Allergies Allergy Verified 06/27/19 08:50 Home Medications Medication Instructions Recorded Confirmed Type albuterol sulfate 1 - 2 puff INHALATION TID PRN 06/24/19 07/03/19 History fluoxetine 30 mg PO DAILY 06/24/19 07/03/19 History naproxen sodium [Aleve] 440 mg PO Q8H PRN 06/24/19 07/03/19 History ibuprofen 800 mg BYMOUTH PRN 07/03/19 07/03/19 History Laboratory Tests 07/05/19 05:19 Vancomycin Trough 9.2 ug/mL L ug/mL (10.0-20.0) Patient hx anesthesia problems: none Family hx anesthesia problems: none PMFSH Past Medical History Medical History Anxiety Arthritis Depression Gastroesophageal reflux disease HTN (hypertension) Social History Social History Smoking status: Current some day smoker Tobacco type: cigarettes Additional smoking assessment comments: pt states she quit smoking 7 years ago, still smokes sometime during stress Alcohol intake: current Drinks per week: 25 Substance use: never Gender identity (if verbalized by the patient): Female Spiritual care concerns: No Agree to blood products: Yes Exam Day of Procedure 07/05/19 09:40
--- NOTE | 2019-07-05 12:23 | PC.NURSE ---
To OR per [ BED], IV H-L OLD DRAINAGE SERSANGIOUS WITH ? BETADINE DRAINAGE MODERATE AMT. [ ]
[2019-07-05] MEDS: LACTATED RINGERS 1,000 ML 30 ML IV CONT (12:40)
--- NOTE | 2019-07-05 13:26 | WPDANESEPPF ---
Anes - Initial Pre Proc Eval Procedure: Operation Date: 07/03/19 17:30 Proposed Procedures p Incision And Drainage Left Middle Finger - Elvis Dunham MD Operation Date: 07/05/19 14:00 Proposed Procedures p SECOND WASHOUT AND DEBRIDEMENT LEFT MIDDLE FINGER - Elvis Dunham MD Date/Time: 07/05/19 13:26 Surgeon: Elvis Dunham MD Pre Op Diagnosis: Post Procedure Wound Left Middle Finger Patient Data Age: 54 Gender: F Height: 5 ft 4 in Weight: 64.9 kg Last Vital Signs Temp 98 F 07/05/19 12:29 Pulse 79 07/05/19 12:29 Resp 16 07/05/19 12:29 BP 121/77 07/05/19 12:29 Pulse Ox 100 07/05/19 12:29 Allergies Allergy/AdvReac Type Severity Reaction Status Date / Time No Known Allergies Allergy Verified 06/27/19 08:50 Home Medications Medication Instructions Recorded Confirmed Type albuterol sulfate 1 - 2 puff INHALATION TID PRN 06/24/19 07/03/19 History fluoxetine 30 mg PO DAILY 06/24/19 07/03/19 History naproxen sodium [Aleve] 440 mg PO Q8H PRN 06/24/19 07/03/19 History ibuprofen 800 mg BYMOUTH PRN 07/03/19 07/03/19 History Laboratory Tests 07/05/19 05:19 Vancomycin Trough 9.2 ug/mL L ug/mL (10.0-20.0) Patient hx anesthesia problems: none Family hx anesthesia problems: none PMFSH Past Medical History Medical History Anxiety Arthritis Depression Gastroesophageal reflux disease HTN (hypertension) Social History Social History Smoking status: Current some day smoker Tobacco type: cigarettes Additional smoking assessment comments: pt states she quit smoking 7 years ago, still smokes sometime during stress Alcohol intake: current Drinks per week: 25 Substance use: never Gender identity (if verbalized by the patient): Female Spiritual care concerns: No Agree to blood products: Yes Anes - Eval Final PreProcedure Day of Procedure 07/05/19 13:26 Patient weight: normal Heart: regular rate and rhythm Lungs: clear to auscultation Airway: Mallampati scale class II Neurological: alert and oriented Last oral intake: >/= 8 hours ASA classification: II Emergent: no Anesthetic plan: proceed Anesthesia type and monitoring: general LMA and standard monitoring Informed Consent: The patient's anesthetic plan and its attendant risks and benefits were discussed with the patient/family/POA. Questions were solicited and answers provided to the satisfaction of the patient/family/POA.
--- NOTE | 2019-07-05 13:51 | SUR.PREOP ---
Up to bathroom. Discussed delay till 230pm with patient. Voices understanding.
--- NOTE | 2019-07-05 14:58 | PM.OP ---
Procedure Note - Brief Procedure Note - Brief Date of procedure: 07/05/19 Pre-op diagnosis: Post Procedure Wound Left Middle Finger Post-op diagnosis: same Procedure performed: Second washout and left middle finger. Delayed partial simple closure 3.0 cm. Surgeon: Elvis Dunham MD Estimated blood loss (mL): 2 Drains: No Packing: No Pathology: none sent Complications: No immediate complications Condition: stable Disposition: PACU
--- NOTE | 2019-07-05 16:04 | PM.PROC ---
Procedure Note - Detailed Date of procedure: 07/05/19 Pre-op diagnosis: Post Procedure Wound Left Middle Finger Post-op diagnosis: same Procedure performed: Second washout and 2 cm sharp excisional debridement of skin subcutaneous tissue and tendon material of an infected wound left middle finger. Description of procedure: The appropriate extremity was marked with the patient in the holding area. She was taken to the operating room and placed supine on the operating table a time-out was held and confirmed. She was given general anesthesia with an LMA. The extremity was prepped and draped in the usual fashion. Iodoform wick material left at the last surgery was removed during the prep. This wound was then irrigated with 2 L of bacitracin saline. Nonviable skin margins were trimmed off. Nonviable tendon material was trimmed away without sacrificing the entire conjoined tendon. Nonviable subcutaneous tissue was trimmed away with scissors. The remainder of this wound was vigorously debrided with Ray-Farhana sponges as it was irrigated. No yamilet pus was identified. All portions of this wound were irrigated. The joint was noted to be open through a 5 mm defect in the joint capsule. The previously placed C-wire was intact and stable. Flat plate AP and lateral images were taken during the procedure to evaluate the pin and local bone. The finger was noted to be very edematous. I was able to decompress that enough to allow for coaptation of the dorsal skin margins together and this wound was partially closed with interrupted 3-0 nylon sutures. This did cover the joint with thick tissue. A Bacitracin moist Kerlix sponge dressing was applied with no compressive wrap. No culture was sent. She is discharged from the operating room stable condition. The tourniquet was not utilized Surgeon: Elvis Dunham MD
--- NOTE | 2019-07-05 18:33 | ADMGEN ---
This patient, Emma Kibmall, was admitted to 3 [facility] Surg Room 309-01. Patient/family oriented to hospital policies and general routines including ID bracelet, bed and alarms, visiting hours, pain management, procedures, bathroom and other care routines, personal items, smoking policy, room service/diet, and visiting hours. Valuables list has been completed. Information on how to activate the Rapid Response Team has been discussed. Patient/Family are encouraged to report perceived risks to care and to ask questions if they do not understand what they are told or what they should do.
--- NOTE | 2019-07-05 18:34 | PC.NURSE ---
Returned from OR per BED DRAINGE SERIOSANGIOUS WET TO DRY TO MIDDLE FINGER ELEVATED ON PILLOW VOIDED PER BATHROM[ ]
[2019-07-05] MEDS: ALPRAZOLAM 0.5 MG TABLET PO (22:43)
[2019-07-06] VITALS (8 sets, daily range): BP systolic 100–152; BP diastolic 54–94; PULSE 79–101; RESP 16–18; TEMP 36.6–37.4; O2SAT 96–99
[2019-07-06] MEDS: carisoprodoL 350 MG TABLET PO ×4 (00:54→17:34)
[2019-07-06] MEDS: HYDROMORPHONE HCL 1 MG/ML INJ IV PUSH ×4 (00:58→22:56)
--- NOTE | 2019-07-06 07:46 | WPDANESPN ---
Anes - Prog Note Post-Op Date/Time: 07/06/19 07:46 Cardiovascular status: normal Respiratory status: normal Airway patency: baseline Mental status: baseline Post-Op hydration status: normal Vital Signs: Last Vital Signs Temp 36.7 C 07/06/19 05:37 Pulse 79 07/06/19 05:37 Resp 16 07/06/19 05:37 BP 132/71 07/06/19 05:51 Pulse Ox 98 07/06/19 05:37 I/O: Intake & Output 07/05/19 07/05/19 07/06/19 15:59 23:59 07:59 Intake Total 290 500 280 Output Total 800 600 Balance 290 -300 -320 Laboratory Tests 07/04/19 05:54 07/04/19 05:54 Microbiology 07/03/19 18:23 Finger Left Middle Anaerobic Culture - Preliminary 07/03/19 18:23 Finger Left Middle Aerobic Culture - Preliminary Staphylococcus aureus Post-procedural complaints: none Patient Feedback: Patient satisfied with anesthetic care.
[2019-07-06] MEDS: ALPRAZOLAM 0.5 MG TABLET PO (12:59)
--- NOTE | 2019-07-06 13:21 | WPDPN ---
Progress Note: A&P Additional Plan Finger doing as expected. Culture is noted to be covered by Ancef.. Will D/C vanco. Possibly home Monday or Monday on oral Keflex and daily dressing. Exam Narrative: Exam Narrative: Pt is up beat and very cooperative with dressing change. Sutures remain intact in loose closure. Local skin is red but palmar skin is not. No proximal erythema. No purulence. Moves adjacent digits well. MSSA on recent culture, same as last visit. Objective Data Vital Signs Vital Signs: Vital Signs - 24 hr 07/05/19 15:53 07/05/19 16:00 07/05/19 16:15 Temperature 36.2 C L Pulse Rate 101 H 98 96 Respiratory Rate 16 16 19 Blood Pressure 160/94 H 164/98 H 164/90 H Pulse Oximetry 100 100 100 07/05/19 16:30 07/05/19 16:45 07/05/19 17:00 Temperature Pulse Rate 94 73 82 Respiratory Rate 19 12 12 Blood Pressure 146/86 H 161/84 H 165/91 H Pulse Oximetry 100 97 97 07/05/19 17:30 07/05/19 17:45 07/05/19 18:25 Temperature 36.8 C Pulse Rate 94 87 88 Respiratory Rate 20 20 Blood Pressure 161/111 H 168/88 H 167/84 H Pulse Oximetry 96 95 95 07/05/19 19:15 07/05/19 22:00 07/06/19 02:30 Temperature 36.6 C 36.7 C 36.8 C Pulse Rate 102 H 92 86 Respiratory Rate 18 18 16 Blood Pressure 123/65 132/71 100/54 L Pulse Oximetry 95 98 97 07/06/19 04:04 07/06/19 05:37 07/06/19 05:51 Temperature 36.7 C Pulse Rate 89 79 Respiratory Rate 16 Blood Pressure 133/70 134/94 H 132/71 Pulse Oximetry 98 07/06/19 08:01 07/06/19 12:25 Temperature 36.6 C 37.4 C Pulse Rate 101 H 95 Respiratory Rate 16 18 Blood Pressure 140/86 152/72 H Pulse Oximetry 99 99 Intake/Output Intake/Output: Intake & Output 07/03/19 07/04/19 07/05/19 07/06/19 23:59 23:59 23:59 23:59 Intake Total 650 1690 1090 820 Output Total 1800 1400 600 Balance 650 110 -766 220 Meds/Results Medications: Active Medications Generic Name Dose Route Start Last Admin Trade Name Freq PRN Reason Stop Dose Admin Hydrocodone Bitart/Acetaminophen 1 tab 07/03/19 19:34 07/06/19 11:58 [place] 5-325 Mg PO 1 tab Q4H PRN Administration Pain Rated 4-6 Albuterol 1 - 2 puff 07/03/19 19:45 Proventil Hfa INHALATION TID PRN Shortness Of Breath Alprazolam 0.5 mg 07/03/19 20:04 07/06/19 12:59 Xanax PO 0.5 mg TID PRN Administration Anxiety Carisoprodol 350 mg 07/04/19 00:00 07/06/19 11:58 Soma PO 350 mg Q6HR EDWARD Administration Diphenhydramine HCl 25 mg 07/03/19 19:34 Benadryl Inj IV PUSH Q6H PRN Itching Hydromorphone HCl 1 mg 07/03/19 19:23 07/06/19 08:34 Dilaudid Inj IV PUSH 1 mg Q2H PRN Administration Pain Rated 7-10 Cefazolin Sodium 1 gm in 50 mls @ 100 mls/hr 07/03/19 22:00 07/06/19 06:00 Ancef 1 Gm/D5w 50 Ml Pm IVPB Infused Q8HR EDWARD Infusion Vancomycin HCl 1,250 mg in 250 mls @ 200 mls/hr 07/05/19 18:00 07/06/19 07:05 Vancomycin 1,250 Mg/D5w 250 Ml IVPB Infused Q12H EDWARD Infusion Naloxone HCl 0.1 mg 07/03/19 19:34 Narcan IV PUSH Q2M PRN Opiate Reversal Ondansetron HCl 4 mg 07/03/19 19:23 Zofran Inj IV PUSH Q6H PRN Nausea Ondansetron HCl 4 mg 07/05/19 13:37 Zofran Inj IV PUSH ONCE PRN Nausea Radiology Results: ITS Impressions Intraoperative X-Ray 07/05/19 15:37 Impression: 1: Interval development of soft tissue swelling with gas adjacent to the left third PIP joint, suspicious for cellulitis. No evidence for osteomyelitis.
[2019-07-07] MEDS: carisoprodoL 350 MG TABLET PO ×4 (00:20→17:39)
[2019-07-07 06:00] VITALS: BP 115/63; PULSE 60; RESP 18; TEMP 36.8; O2SAT 98
[2019-07-07] MEDS: HYDROMORPHONE HCL 1 MG/ML INJ IV PUSH ×3 (06:01→21:27)
[2019-07-07] MEDS: ALPRAZOLAM 0.5 MG TABLET PO ×2 (08:06→21:29)
--- NOTE | 2019-07-07 09:33 | WPDPN ---
Exam Narrative: Exam Narrative: Pt is up beat and very cooperative with dressing change. Sutures remain intact in loose closure. Local skin is less red. Tolerates dressing change very well. No proximal erythema. No purulence. Moves adjacent digits well. MSSA on recent culture, same as last visit. Plan to discharge tomorrow. Objective Data Vital Signs Vital Signs: Vital Signs - 24 hr 07/06/19 12:25 07/06/19 15:02 07/06/19 21:26 Temperature 37.4 C 37.4 C 36.7 C Pulse Rate 95 83 85 Respiratory Rate 18 16 16 Blood Pressure 152/72 H 118/68 143/80 H Pulse Oximetry 99 96 99 07/07/19 06:00 Temperature 36.8 C Pulse Rate 60 Respiratory Rate 18 Blood Pressure 115/63 Pulse Oximetry 98 Intake/Output Intake/Output: Intake & Output 07/04/19 07/05/19 07/06/19 07/07/19 23:59 23:59 23:59 23:59 Intake Total 1690 1090 1950 410 Output Total 1800 1769 287 5796 Balance -110 -310 1350 -790 Meds/Results Medications: Active Medications Generic Name Dose Route Start Last Admin Trade Name Freq PRN Reason Stop Dose Admin Hydrocodone Bitart/Acetaminophen 1 tab 07/03/19 19:34 07/07/19 08:02 [place] 5-325 Mg PO 1 tab Q4H PRN Administration Pain Rated 4-6 Albuterol 1 - 2 puff 07/03/19 19:45 Proventil Hfa INHALATION TID PRN Shortness Of Breath Alprazolam 0.5 mg 07/03/19 20:04 07/07/19 08:06 Xanax PO 0.5 mg TID PRN Administration Anxiety Carisoprodol 350 mg 07/04/19 00:00 07/07/19 05:56 Soma PO 350 mg Q6HR EDWARD Administration Diphenhydramine HCl 25 mg 07/03/19 19:34 Benadryl Inj IV PUSH Q6H PRN Itching Hydromorphone HCl 1 mg 07/03/19 19:23 07/07/19 06:01 Dilaudid Inj IV PUSH 1 mg Q2H PRN Administration Pain Rated 7-10 Cefazolin Sodium 1 gm in 50 mls @ 100 mls/hr 07/03/19 22:00 07/07/19 06:25 Ancef 1 Gm/D5w 50 Ml Pm IVPB Infused Q8HR EDWARD Infusion Naloxone HCl 0.1 mg 07/03/19 19:34 Narcan IV PUSH Q2M PRN Opiate Reversal Ondansetron HCl 4 mg 07/03/19 19:23 Zofran Inj IV PUSH Q6H PRN Nausea Ondansetron HCl 4 mg 07/05/19 13:37 Zofran Inj IV PUSH ONCE PRN Nausea Radiology Results: ITS Impressions Intraoperative X-Ray 07/05/19 15:37 Impression: 1: Interval development of soft tissue swelling with gas adjacent to the left third PIP joint, suspicious for cellulitis. No evidence for osteomyelitis.
[2019-07-07 14:00] VITALS: BP 120/70; PULSE 85; RESP 16; TEMP 36.9; O2SAT 96
[2019-07-07 22:00] VITALS: PULSE 79; RESP 18; TEMP 37.1; O2SAT 100
[2019-07-07 22:44] VITALS: BP 160/92
[2019-07-08] MEDS: carisoprodoL 350 MG TABLET PO ×4 (00:13→17:14)
[2019-07-08] MEDS: HYDROMORPHONE HCL 1 MG/ML INJ IV PUSH ×2 (05:39→15:30)
[2019-07-08 06:00] VITALS: BP 132/82; PULSE 91; RESP 18; TEMP 37; O2SAT 99
[2019-07-08 06:36] LABS: Estimated CRCL calculation 93 ml/min; Estimated Glomerular Filt Rate > 60
[2019-07-08 08:00] VITALS: PULSE 91; RESP 18; O2SAT 99
[2019-07-08] MEDS: ALPRAZOLAM 0.5 MG TABLET PO (11:45)
[2019-07-08 14:07] VITALS: BP 141/82; PULSE 95; RESP 16; TEMP 36.4; O2SAT 100
--- NOTE | 2019-07-30 12:16 | PM.DS ---
DS: Diagnosis Admitting Diagnosis Admitting Diagnosis: Infection following a procedure, deep incisional surgical site, initial encounter DS: Summary Time Spent with Patient Time attestation: Total time spent providing and/or coordinating discharge services: Exam Narrative: Exam Narrative: Emma Kimball, age 54, is being discharged home following treatment for gangrenous changes to her left middle finger. These occurred approximately 1 week after she underwent an open reduction of a month old palmar dislocation of the left middle finger proximal interphalangeal joint. That procedure included a diagonally positioned C-wire for stabilization. She was operated for debridement and admitted the same day she was seen in my office for her 1st postop visit. She was operated twice, July 02 and July 04 during this admission to debride and clean up her wound. the C-wire was left in place to prevent loss of reduction Cultures grew methicillin sensitive Staph aureus. She was treated with vancomycin while hospitalized. She was discharged on cephalexin with a partially closed wound of the dorsum of the finger Follow up with Dr Dunham was arranged within the week. Discharge Plan Discharge Attending physician on discharge: Elvis Dunham Consulting providers: Adam Hyde Discharging Clinician: Elvis Dunham Patient Disposition: Home, Self-Care Activity: other - see discharge instructions Diet: as tolerated Wound Care Instructions: other - see discharge instructions Discharge Instructions: CONTINUE DRESSING CHAGE TO THIRD FINGER OF LEFT HAND USE XEROFORM STRIPES TOP AND BOTTOM WITH 1/2 BERNARD ROLL Patient Instructions: Pain Management (DC) Follow-up/Referrals: Elvis Dunham MD [Physician] - 1 Week Discharge Medications: New cephalexin [Keflex] 500 mg capsule 500 mg PO Q8H Qty: 84 RF: 0 hydrocodone-acetaminophen 5-325 mg tablet 1 tablet PO Q6H PRN (Reason: pain) Qty: 20 RF: 0 hydrocodone-acetaminophen 5-325 mg tablet 1 tablet PO Q6H PRN (Reason: pain) Qty: 10 RF: 0 Continued naproxen sodium [Aleve] 220 mg Tablet 440 mg PO Q8H PRN (Reason: Pain) RF: 0 fluoxetine 60 mg Tablet 30 mg PO DAILY RF: 0 albuterol sulfate 90 mcg/actuation HFA aerosol inhaler 1 - 2 puff INHALATION TID PRN (Reason: Shortness Of Breath) RF: 0 ibuprofen 800 mg BYMOUTH PRN RF: 0 Date of admission: 07/03/19 19:23 Primary Care Provider: PHYSICIAN,[employer]AL [employer]DER Admitting Provider: Elvis Dunham Discharge Date/Time: 07/08/19 19:10 Attending physician on admission: Elvis Dunham
--- NOTE | 2019-07-30 12:34 | P.DS_ITS ---
DS: Diagnosis Admitting Diagnosis Admitting Diagnosis: Infection following a procedure, deep incisional surgical s ite, initial encounter DS: Summary Time Spent with Patient Time attestation: Total time spent providing and/or coordinating discharge services: Discharge Plan Discharge Attending physician on discharge: Elvis Dunham Consulting providers: Adam Hyde Discharging Clinician: Elvis Dunahm Patient Disposition: Home, Self-Care Activity: other - see discharge instructions Diet: as tolerated Wound Care Instructions: other - see discharge instructions Discharge Instructions: CONTINUE DRESSING CHAGE TO THIRD FINGER OF LEFT HAND USE XEROFORM STRIPES TOP AND BOTTOM WITH 1/2 BERNARD ROLL Patient Instructions: Pain Management (DC) Follow-up/Referrals: Elvis Dunham MD [Physician] - 1 Week Discharge Medications: New cephalexin [Keflex] 500 mg capsule 500 mg PO Q8H Qty: 84 RF: 0 hydrocodone-acetaminophen 5-325 mg tablet 1 tablet PO Q6H PRN (Reason: pain) Qty: 20 RF: 0 hydrocodone-acetaminophen 5-325 mg tablet 1 tablet PO Q6H PRN (Reason: pain) Qty: 10 RF: 0 Continued naproxen sodium [Aleve] 220 mg Tablet 440 mg PO Q8H PRN (Reason: Pain) RF: 0 fluoxetine 60 mg Tablet 30 mg PO DAILY RF: 0 albuterol sulfate 90 mcg/actuation HFA aerosol inhaler 1 - 2 puff INHALATION TID PRN (Reason: Shortness Of Breath) RF: 0 ibuprofen 800 mg BYMOUTH PRN RF: 0 Date of admission: 07/03/19 19:23 Primary Care Provider: PHYSICIAN,ALTERNATIVE EDUCATION TEACHER Admitting Provider: Elvis Dunham Discharge Date/Time: 07/08/19 19:10 Attending physician on admission: Elvis Dunham
== END 2019-07-08 19:10 | disposition home or self-care (01) | DRG 711 ==
LOC: ANH3MEDSUR 07-04 08:22
PROVIDERS: Admitting Provider Plastic Surgery; Visit Provider Plastic Surgery
PROC: 0LB80ZZ Excision of Left Hand Tendon, Open Approach (ICD-10-PCS; principal; 2019-07-03 17:30)
DX: T81.42XA Infection following a procedure, deep incisional surgical site, initial encounter (principal); K21.9 Gastro-esophageal reflux disease without esophagitis; I10 Essential (primary) hypertension; F17.210 Nicotine dependence, cigarettes, uncomplicated; F41.8 Other specified anxiety disorders; F10.129 Alcohol abuse with intoxication, unspecified; I96 Gangrene, not elsewhere classified; A49.02 Methicillin resistant Staphylococcus aureus infection, unspecified site
CPT/HCPCS: 36415; 80048; 80202; 82565; 85027; 87070; 87075; 87147; 87186; 87205; A9270; J0690; J1100; J1170; J2250; J2405; J2704; J3010; J3370; J7120

== ENCOUNTER 2019-08-30 14:00 | Emergency (ER) | payer MEDICAID, SELFPAY ==
[2019-08-30 14:05] VITALS: BP 160/102; PULSE 99; RESP 16; TEMP 36.9; O2SAT 99
--- NOTE | 2019-08-30 14:23 | ED.WEAKNESS ---
HPI - Weakness General Chief complaint: Weakness Stated complaint: neuro s/sx Time Seen by Provider: 08/30/19 14:19 History of Present Illness HPI Narrative: 54 yo female c/o numbness and weakness of the left side of her face for the past 7-10 days. She has noted difficulty eating due to the fact that food leaks from the corner of her mouth. She is able to close both eyes. Additionally she has pain and drainage from the left ear. No fever, extremity weakness. Related Data Home Medications Medication Instructions Recorded Confirmed albuterol sulfate 1 - 2 puff INHALATION TID PRN 06/24/19 07/03/19 fluoxetine 30 mg PO DAILY 06/24/19 07/03/19 naproxen sodium [Aleve] 440 mg PO Q8H PRN 06/24/19 07/03/19 ibuprofen 800 mg BYMOUTH PRN 07/03/19 07/03/19 Allergies Allergy/AdvReac Type Severity Reaction Status Date / Time No Known Allergies Allergy Verified 06/27/19 08:50 Review of Systems Review of Systems: All systems reviewed & are unremarkable except as noted in HPI and below Constitutional: Constitutional: Denies fever(s) Eyes: Eyes: Denies change in vision ENT: Reports dizziness Cardiovascular: Cardiovascular: Denies chest pain Respiratory: Respiratory: Denies dyspnea Gastrointestinal: Gastrointestinal: Denies abdominal pain Neurologic: Reports headache(s) Allergic/Immunologic: Allergic/Immunologic: Denies lip swelling, Denies throat swelling and Denies tongue swelling PMFSH Past Medical History Medical History Anxiety Arthritis Depression Gastroesophageal reflux disease HTN (hypertension) Social History Social History Smoking status: Current some day smoker Tobacco type: cigarettes Additional smoking assessment comments: pt states she quit smoking 7 years ago, still smokes sometime during stress Alcohol intake: current Drinks per week: 25 Substance use: never Gender identity (if verbalized by the patient): Female Spiritual care concerns: No Agree to blood products: Yes Exam Const: General: no acute distress and alert Orientation/consciousness: patient oriented x3 HENMT: Ears: TM abnormal bulging on the left and erythematous on the left Mouth: Yes moist mucous membranes Eyes: Conjunctivae: conjunctivae normal Pupils: Equal, round and reactive pupils present EOM: EOMs intact bilaterally Resp: Effort & Inspection: normal respiratory effort Auscultation: clear to auscultation bilaterally Cardio: Rate: regular rate Rhythm: regular rhythm Neuro: General: patient oriented x3 and moves all extremities Cranial nerves: Yes Nystagmus not present Speech: normal speech Other: left sided facial weakness including forehead Extrem: General: normal to inspection Course Vital Signs Vital signs: Vital Signs Temperature 36.9 C 08/30/19 14:05 Pulse Rate 99 08/30/19 14:05 Respiratory Rate 16 08/30/19 14:05 Blood Pressure 160/102 H 08/30/19 14:05 Pulse Oximetry 99 08/30/19 14:05 Temperature 36.9 C 08/30/19 14:05 Pulse Rate 99 08/30/19 14:05 Respiratory Rate 16 08/30/19 14:05 Blood Pressure 160/102 H 08/30/19 14:05 Pulse Oximetry 99 08/30/19 14:05 MDM - Weakness MDM Narrative Medical decision making narrative: Her exam and history clearly point to Stanton's palsy associated with otitis media Discharge Plan Discharge Clinical Impression: Stanton's palsy, Acute left otitis media Patient Disposition: Home, Self-Care Condition: Stable Instructions: Antibiotic Form Prescriptions: New prednisone 20 mg tablet 60 mg PO DAILY Qty: 7 RF: 0 acyclovir 800 mg tablet 800 mg PO Q4H Qty: 7 RF: 0 prednisone 20 mg tablet 60 mg PO DAILY 7 Days Qty: 21 RF: 0 amoxicillin-pot clavulanate [Augmentin] 875-125 mg tablet 1 tablet PO Q12H 7 Days Qty: 14 RF: 0 No Action naproxen sodium [Aleve] 220 mg Tablet 440
[2019-08-30] MEDS: predniSONE 20 MG TABLET 60 MG PO (14:59)
--- NOTE | 2019-08-30 15:02 | ECG_ITS ---
Measurements Intervals [place] Rate: 93 P: -20 RI: 126 QRS: 59 QRSD: 88 T: 42 QT: 369 QTc: 459 Interpretive Statements SINUS RHYTHM NORMAL ECG Electronically Signed On 08-30-2019 16:09:14 CDT by Saturnino Govea D.O.
== END 2019-08-30 15:15 | disposition home or self-care (01) ==
PROVIDERS: Emergency Provider Emergency Medicine
DX: G51.0 Bell's palsy (principal); H66.92 Otitis media, unspecified, left ear; M19.90 Unspecified osteoarthritis, unspecified site; F32.9 Major depressive disorder, single episode, unspecified; F41.9 Anxiety disorder, unspecified; K21.9 Gastro-esophageal reflux disease without esophagitis; I10 Essential (primary) hypertension; Z72.0 Tobacco use
CPT/HCPCS: 93005; 99283; J7512